=== PATIENT | male | born 1990 | race Caucasian/White ===

== ENCOUNTER 2022-05-29 12:32 | Emergency (ER) | payer OTHER, SELFPAY ==
[2022-05-29 12:40] VITALS: BP 104/57; PULSE 84; RESP 16; TEMP 37; O2SAT 96
--- NOTE | 2022-05-29 14:55 | ED.URI ---
HPI - URI/Sore Throat General Chief Complaint: Upper Respiratory Infection Stated Complaint: In between drs needs albuterol Time Seen by Provider: 05/29/22 14:55 Source: patient, RN notes reviewed and old records reviewed Mode of arrival: ambulatory Limitations: no limitations History of Present Illness HPI Narrative: 32 year old male presents to [facility] care with complaints of some shortness of breath and cough for 3 days, denies any fevers, chills or body aches. Patient reports that he has history of asthma and needs refill on his albuterol inhaler. patient reports that he is in between doctors. Patient states that he has had COVId vaccinations But no flu shot. MD elicited complaint: cough and sore throat Onset (ago): day(s) (day 3 of symptoms) Related Data Home Medications Medication Instructions Recorded Confirmed albuterol sulfate 1.25 mg/3 mL 1.25 mg inhalation Q4H 07/07/19 05/29/22 solution for nebulization albuterol sulfate 90 mcg/actuation 1 inh inhalation QID 07/07/19 05/29/22 aerosol inhaler Allergies Allergy/AdvReac Type Severity Reaction Status Date / Time No Known Allergies Allergy Verified 05/29/22 13:39 Review of Systems Review of Systems: CONSTITUTIONAL: Denies malaise, chills, sweats, or fever. EYES: Denies visual changes, redness, or discharge. ENT: Reports rhinorrhea, congestion, sinus pain, otalgia and sore throat. CARDIOVASCULAR: Denies chest pain, palpitations, or edema. RESPIRATORY: Reports cough.? Reports some dyspnea. GASTROINTESTINAL: Denies abdominal pain, nausea, vomiting, diarrhea SKIN: Denies rash or itching. MUSCULOSKELETAL: Denies myalgia. NEUROLOGIC: Denies headache. All systems reviewed & are unremarkable except as noted in HPI and below PMFSH Past Medical History Medical History (Updated 06/01/22 @ 14:20 by Sunshine Freeman NP) Asthma Fracture of right upper extremity Surgical History Surgical History (Updated 06/01/22 @ 14:21 by Sunshine Freeman NP) History of tonsillectomy Social History Social History (Updated 06/01/22 @ 14:22 by Sunshine Freeman NP) Smoking status: Never smoker Alcohol intake: current Alcohol use details: social Substance use: never Gender identity (if verbalized by the patient): Male Comments At time of signature, agree with nursing past medical, surgical, social and family history. There is no relevant family history pertinent to the presenting complaint Exam Narrative: GENERAL: Well-appearing, well-nourished, and in no acute distress. HEAD: Normocephalic EYES: PERRLA, conjunctivae clear ENT: Nares clear, turbinates edematous and erythematous, clear discharge. Mucous membranes moist. TM pearly cyr with dull light reflex bilaterally; no tragal tenderness. Oropharynx erythematous without lesions. Tonsils not present and no throat exudate,no drooling, no hoarseness, no trismus, uvula midline. NECK: Supple. No lymphadenopathy CHEST: Decreased with some scattered wheezing, breath sounds equal. Positive wheezing,no rhonchi, rales, or stridor. No respiratory distress, speaks in full sentences.Cough present SAO2 96% on room air HEART: Regular rate and rhythm. No murmur heard. SKIN: Warm, dry, no rash. NEURO: Alert and oriented x3. PSYCH: Normal mood and affect Course Course Emergency Course: Patient is aware of diagnosis, understands and agrees to treatment plan.? Anticipatory guidance given.? Patient agrees to follow-up as directed and is aware of reasons to seek care at the emergency department. Portions of this record may have been created with voice recognition software Level of Care: Express Care Visit Vital Signs Vital signs: Vital Signs Temperature 37.0 C 05/29/22 12:40 Pulse Rate 84 05/29/22 12:40 Respiratory Rate 16 05/29/22 12:40 Blood Pressure 104/57 L 05/29/22 12:40 Pulse Oximetry 96 05/29/22 12:40 Oxygen Delivery Room Air 05/29/22 12:40 Temperat
== END 2022-05-29 15:16 | disposition home or self-care (01) ==
PROVIDERS: Emergency Provider Registered Nurse
DX: J45.901 Unspecified asthma with (acute) exacerbation (principal)
CPT/HCPCS: 99213; G0463

== ENCOUNTER 2022-07-31 09:30 | Emergency (ER) | payer OTHER, SELFPAY ==
--- NOTE | 2022-07-31 09:36 | ED.URI ---
HPI - URI/Sore Throat General Chief Complaint: Upper Respiratory Infection Stated Complaint: Pain behind nose; abnormal muscus taste Source: patient and RN notes reviewed History of Present Illness HPI Narrative: A 32-year-old male presents to urgent care with complaints of congestion and sinus pressure x3 weeks. Patient reports intermittent, bilateral, ear pain and over this past week. Patient states he has been coughing up phlegm from postnasal drip. Patient denies any fevers, chills, sore throat, vomiting, or diarrhea. Patient has taken Tylenol for her symptoms. Some parts of this dictation were generated by voice recognition software and may contain typographical and/or grammatical inaccuracies. Related Data Allergies Allergy/AdvReac Type Severity Reaction Status Date / Time No Known Allergies Allergy Verified 07/31/22 09:47 Review of Systems Review of Systems: CONSTITUTIONAL: Denies fever, chills, or sweats. EYES: Denies visual changes, redness, or discharge. ENT: Reports congestion sinus pressure CARDIOVASCULAR: Denies chest pain, palpitations, or edema. RESPIRATORY: Denies cough or dyspnea. GASTROINTESTINAL: Denies abdominal pain, nausea, vomiting, or diarrhea. GENITOURINARY: Denies dysuria or hematuria. SKIN: Denies rash or itching. MUSCULOSKELETAL: Denies back pain, joint pain, or myalgia. NEUROLOGIC: Denies headache, numbness, or weakness. [facility] Past Medical History Medical History Asthma Fracture of right upper extremity Surgical History Surgical History History of tonsillectomy Social History Social History (Updated 07/16/22 @ 09:03 by NIRMAL East) Smoking status: Current every day smoker (Pt vapes) Tobacco type: e-cigarettes/vaping Alcohol intake: never Alcohol use details: social Substance use: never Lack of Transportation: No Lack of Food: Never True Current Housing: I Have Housing Concerned About Future Housing: No Difficulty Paying Gas/Electric Bills: No Difficulty Paying for Meds: No Currently Unemployed: No Education: High School Diploma/GED Difficulty w/ Childcare or Family Care: No Living arrangements: with family Gender identity (if verbalized by the patient): Male Comments At the time of my signature, I reviewed and agree with the nursing past medical, surgical, social, and family history. There is no relevant family history pertinent to the patient complaint. Exam Narrative: GENERAL: This is a well-nourished, well-developed patient, in no apparent distress. HEAD: normocephalic, atraumatic. EYES: PERRL. Sclera clear/white. Vision is grossly intact. EARS: External ears normal, auditory canals clear and without drainage, TMs normal without perforation. Hearing grossly intact. NOSE: Congestion. Nares appear to be inflamed and erythema. THROAT: Mucous membranes moist, posterior pharynx clear. NECK: Neck supple, non-tender without lymphadenopathy, masses or thyromegaly. CARDIOVASCULAR: Regular rate and rhythm without murmurs, gallops, or rubs. RESPIRATORY: Clear to auscultation. Breath sounds equal bilaterally. No wheezes, rales, or rhonchi. GASTROINTESTINAL: Abdomen soft, non-tender, nondistended. Bowel sounds are active. No hepato-splenomegaly, or palpable masses. No guarding. SKIN: Pale, ashen, dry NEURO: awake, alert, and oriented to person, place and time. There were no obvious focal neurologic abnormalities. Course Course Level of Care: Express Care Visit Vital Signs Vital signs: Vital Signs Temperature 97.8 F 07/31/22 09:37 Pulse Rate 86 07/31/22 09:37 Respiratory Rate 16 07/31/22 09:37 Blood Pressure 131/80 07/31/22 09:37 Pulse Oximetry 100 07/31/22 09:37 Oxygen Delivery Room Air 07/31/22 09:37 Temperature 97.8 F 07/31/22 09:37 Pulse Rate 86 07/31/22 09:37 Respiratory Rate 16 07/31/22
[2022-07-31 09:37] VITALS: BP 131/80; PULSE 86; RESP 16; TEMP 36.6; O2SAT 100
== END 2022-07-31 09:55 | disposition home or self-care (01) ==
PROVIDERS: Emergency Provider Nurse Practitioner Family; PCP Emergency Medicine
DX: J01.00 Acute maxillary sinusitis, unspecified (principal); F17.290 Nicotine dependence, other tobacco product, uncomplicated; J45.909 Unspecified asthma, uncomplicated
CPT/HCPCS: 99213; G0463

== ENCOUNTER 2022-08-04 09:39 | Outpatient (CLI) | payer OTHER, SELFPAY ==
--- NOTE | 2022-08-04 12:23 | P.PCNPFT_ITS ---
PFT Procedure Performed PFT Procedure Performed Plethysmography (Lung Vol) Diffusing Cap (DLCO) Flow Vol Loop Spirometry w/o Bronchodil PFT Interpretation Lung volumes were measured with the body plethysmography method. Lung volumes are unremarkable. Spirometry showed diminished expiratory flow rates and a d iminished FEV1 to FVC ratio of 69%, consistent with obstructive airway disease. No post bronchodilator study carried out. Lung diffusion capacity is mildly reduced at 67% predicted. The flow-volume loop is consistent with obstructive airway disease. Impression: Mild obstructive airway disease. Mild reduction in lung diffusion capacity.
== END 2022-08-04 09:40 | disposition home or self-care (01) ==
LOC: ANHPFT 09:41
PROVIDERS: PCP Emergency Medicine; Visit Provider Emergency Medicine
DX: J45.909 Unspecified asthma, uncomplicated (principal); R94.2 Abnormal results of pulmonary function studies
CPT/HCPCS: 94375; 94726; 94729

== ENCOUNTER 2023-05-16 13:57 | Emergency (ER) | payer OTHER, SELFPAY ==
[2023-05-16 14:02] VITALS: BP 140/93; PULSE 94; RESP 18; TEMP 36.9; O2SAT 99
--- NOTE | 2023-05-16 14:04 | ED.GENADULT ---
HPI - General Adult General Chief complaint: Upper Respiratory Infection Stated complaint: Refill albuteral Time Seen by Provider: 05/16/23 14:10 Mode of arrival: ambulatory Limitations: no limitations History of Present Illness HPI narrative: 33-year-old male presents with concern for medication refill. He reports he has asthmatic and he ran out of his albuterol inhaler, he used his last puff of albuterol prior to arrival. He reports intermittent sick symptoms over the last several weeks. He reports he does have a primary care doctor but he cannot remember her name. He denies current shortness of breath, chest pain. Reports his symptoms relieved by his albuterol inhaler MD complaint: Medication refill Related Data Allergies Allergy/AdvReac Type Severity Reaction Status Date / Time No Known Allergies Allergy Verified 05/16/23 14:13 Review of Systems Review of Systems: CONSTITUTIONAL: Denies malaise, chills, sweats, or fever. ENT: Denies rhinorrhea, congestion, sinus pain, otalgia or sore throat. CARDIOVASCULAR: Denies chest pain, palpitations, or edema. RESPIRATORY: Denies current cough or dyspnea. SKIN: Denies rash or itching. MUSCULOSKELETAL: Denies current myalgia. NEUROLOGIC: Denies current headache. All systems reviewed & are unremarkable except as noted in HPI and below PMFSH Past Medical History Medical History Asthma Fracture of right upper extremity Surgical History Surgical History History of tonsillectomy Social History Social History Smoking status: Current every day smoker (Pt vapes) Tobacco type: e-cigarettes/vaping Alcohol intake: never Alcohol use details: social Substance use: never Lack of Transportation: No Lack of Food: Never True Current Housing: I Have Housing Concerned About Future Housing: No Difficulty Paying Gas/Electric Bills: No Difficulty Paying for Meds: No Currently Unemployed: No Education: High School Diploma/GED Difficulty w/ Childcare or Family Care: No Living arrangements: with family Gender identity (if verbalized by the patient): Male Comments At time of signature, agree with nursing past medical, surgical, social and family history. There is no relevant family history pertinent to the presenting complaint Exam Narrative: GENERAL: Well-appearing, well-nourished, and in no acute distress. HEAD: Normocephalic, atraumatic. EYES: PERRLA, sclera clear ENT: Nares clear. Mucous membranes moist. NECK: Supple. CHEST: No respiratory distress. Clear to auscultation. No bony deformities, no asymmetry. Speaks in full sentences. HEART: Regular rate and rhythm. SKIN: Warm, dry, no visible rash. NEURO: Alert and oriented x3. PSYCH: Normal mood and affect Course Course Emergency Course: Patient is aware of diagnosis, understands and agrees to treatment plan. Anticipatory guidance given. Patient agrees to follow-up as directed and is aware of reasons to seek care at the emergency department. Portions of this record may have been created with voice recognition software Level of Care: Express Care Visit Vital Signs Vital signs: Reviewed. Medical Decision Making MDM Narrative Medical decision making narrative: Exam findings show no acute concerns or changes; patient is non-toxic appearing and is in no distress. Patient is appropriate for outpatient treatment and follow-up. Critical Care Time Critical Care Time Critical Care Time: No Discharge Plan Discharge Clinical Impression: Medication refill Patient Disposition: Home, Self-Care Condition: Stable Instructions: Asthma (ED) Additional Instructions: 1) Please follow-up with your primary care doctor in the next 1-2 days. 2) If you have any worsening of symptoms or any other urgent concerns please go t
== END 2023-05-16 14:20 | disposition home or self-care (01) ==
PROVIDERS: Emergency Provider Nurse Practitioner
DX: Z76.0 Encounter for issue of repeat prescription (principal); F17.290 Nicotine dependence, other tobacco product, uncomplicated
CPT/HCPCS: 99211; G0463

== ENCOUNTER 2023-05-21 15:51 | Emergency (ER) | payer OTHER, SELFPAY ==
[2023-05-21 15:57] VITALS: BP 147/71; PULSE 92; RESP 16; TEMP 36.6; O2SAT 97
--- NOTE | 2023-05-21 16:48 | ED.EYEPROB ---
HPI - Eye Problem General Chief complaint: Eye Problems Stated complaint: poss pink eye Time Seen by Provider: 05/21/23 16:45 Source: patient, RN notes reviewed and old records reviewed Mode of arrival: ambulatory Limitations: no limitations History of Present Illness HPI Narrative: 33-year-old male who presents to [facility] with complaints bilateral eye redness with mucoid drainage and crusting of eye lashes this morning. Patient reports that last night he noted around 2100 his left eye being red and drainage of yellowish mucous, this morning he noted drainage from his right eye with redness also. Patient states that his eyes burn,denies any sharp pain or any change in vision. visual acuity 20/25 bilateral eyes without correction. MD chief complaint: eye redness and other (drainage) Onset (ago): day(s) (day 2 of symptoms) Eye Symptoms: burning, redness and discharge Severity scale (1-10): 3 Treatments Prior to Arrival: none Related Data Allergies Allergy/AdvReac Type Severity Reaction Status Date / Time No Known Allergies Allergy Verified 05/21/23 16:34 Review of Systems Review of Systems: CONSTITUTIONAL: Denies fever, chills, or sweats. EYES: Denies visual changes. Reports redness,, irritation, discharge bilateral eyes with no visual impairment or sharp pain. ENT: Denies rhinorrhea, congestion, sore throat, or otalgia. CARDIOVASCULAR: Denies chest pain, palpitations, or edema. RESPIRATORY: Denies cough or dyspnea. SKIN: Denies rash or itching. NEUROLOGIC: Denies headache All systems reviewed & are unremarkable except as noted in HPI and below PMFSH Past Medical History Medical History (Updated 05/22/23 @ 22:25 by Sunshine Freeman NP) Anxiety and depression Asthma Fracture of right upper extremity Surgical History Surgical History History of tonsillectomy Social History Social History Smoking status: Former smoker (Pt vapes) Tobacco type: e-cigarettes/vaping Additional smoking assessment comments: quit 2 weeks ago Alcohol intake: never Alcohol use details: social Substance use: never Lack of Transportation: No Lack of Food: Never True Current Housing: I Have Housing Concerned About Future Housing: No Difficulty Paying Gas/Electric Bills: No Difficulty Paying for Meds: No Currently Unemployed: No Education: High School Diploma/GED Difficulty w/ Childcare or Family Care: No Living arrangements: with family Gender identity (if verbalized by the patient): Male Comments At time of signature, agree with nursing past medical, surgical, social and family history. There is no relevant family history pertinent to the presenting complaint Exam Narrative: GENERAL: Well-appearing, well-nourished, and in no acute distress. HEAD: Normocephalic, atraumatic. EYES: PERRLA and EOMI. Upper and lower eyelids unremarkable. No periorbital cellulitis noted. Sclera and conjunctivae injected bilaterally with mucoid drainage from both eyes, denies any change in vision or any sharp pain to eyes, visual acuity bilateral eye 20/25 without correction ENT: Nares clear, no rhinorrhea or epistaxis. Mucous membranes moist. NECK: Supple. no lymphadenopathy CHEST: Clear to auscultation. No respiratory distress. SAO2 97% on room air HEART: Regular rate and rhythm. No murmur heard. Normal peripheral pulses. SKIN: Warm, dry, no rash. NEURO: No focal deficits. Alert and oriented x3. vision or any sharp pain to eyes Course Course Emergency Course: Patient is aware of diagnosis, understands and agrees to treatment plan. Anticipatory guidance given. Patient agrees to follow-up as directed and is aware of reasons to seek care at the emergency department. Portions of this record may have been created with voice recognition software Level of Care: Express Care Visit Vital Signs Vital signs:
== END 2023-05-21 16:50 | disposition home or self-care (01) ==
PROVIDERS: Emergency Provider Registered Nurse; PCP Emergency Medicine
DX: H10.9 Unspecified conjunctivitis (principal); Z87.891 Personal history of nicotine dependence; J45.909 Unspecified asthma, uncomplicated
CPT/HCPCS: 99213; G0463

== ENCOUNTER → 2023-05-27 14:45 | Outpatient (CLI) | payer OTHER, SELFPAY ==
--- NOTE | ~2023-05-27 | XR_ITS ---
EXAMINATION: XR chest 2V 05/27/2023 14:59 INDICATION: Asthma. Shortness of breath. Cough. PROCEDURE: 2 view chest COMPARISON: No prior studies for comparison. FINDINGS: The lungs are clear. The cardiomediastinal silhouette is within normal limits. There are no pleural effusions. There is no pneumothorax suspected. IMPRESSION: 1: NO ACUTE CARDIOPULMONARY DISEASE. Reviewed, dictated and finalized at location L. ET[facility]
== END ==
PROVIDERS: PCP Emergency Medicine; Visit Provider Emergency Medicine
DX: J45.909 Unspecified asthma, uncomplicated (principal); R06.02 Shortness of breath; R05.9 Cough, unspecified
CPT/HCPCS: 71046